=== PATIENT | female | born 1950 | race Caucasian/White ===

== ENCOUNTER → 2017-07-21 | Outpatient (CLI) | payer MEDICARE, OTHER ==
[2017-06-25 10:44] VITALS: BMI 35.5
[~2017-07-21] MED LIST: AMLO-96 PO; AMLO-99 PO; ASCO500C8 PO; ASPI-757 PO; CALC500T42 PO; CALC600T63 PO; CHOL200025 PO; DIPH0.5D12 IM; FLAX100042 PO; FLU45SYR17 IM; FLUC100T35 PO; FOL1 PO; GARL400T18 PO; GARL5000 PO; GLUC-198 PO; GREE1CAP5 PO; HYDR-2966 PO; INSU100I28 SQ; INSU100I30 SQ; IRBE1TAB24 PO; LISI-355 PO; LISI20TA29 PO; MET500 PO; MONT10TA PO; MULT1CAP41 PO; OXYC-865 PO; PNEI IM; PNEU0.5D3 IM; ROSU20TA23 PO; SELE200T23 PO; SULF-198 PO; VERA200C8 PO; ZOST19404 SQ; [UNRECOGNIZED DRUG - CODE] PO
== END ==
LOC: LAB 12:37
PROVIDERS: ATTEND Nurse Practitioner Family
DX: R30.0 Dysuria (principal); R35.0 Frequency of micturition; B96.20 Unspecified Escherichia coli [E. coli] as the cause of diseases classified elsewhere
CPT/HCPCS: 81001; 87088; 87186

== ENCOUNTER 2017-12-23 00:34 | Inpatient (IN) | payer MEDICARE, OTHER ==
[2017-11-25 08:01] LABS: PLATELET COUNT, AUTOMATED 215 K/uL (150-450)
[2017-12-22 14:23] LABS: INR 0.96
[~2017-12-23] VITALS: Ht 152.4 cm; Wt 83.9 kg
[2017-12-23] VITALS (11 sets, daily range): BP systolic 134–172; BP diastolic 63–82
[~2017-12-23 00:34] MED LIST changes: +CHOL10005 PO; +GLIM1TAB25 PO; +INSU100V24 SQ; +[UNRECOGNIZED DRUG - OTHER]
--- NOTE | 2017-12-23 04:23 | HISTORY AND PHYSICAL ---
DATE OF ADMISSION: December 23, 2017 IDENTIFICATION, CHIEF COMPLAINT Silvia is a 67-year-old woman with chief complaint of left knee pain. HISTORY OF PRESENT ILLNESS Patient has a longstanding history of knee arthritis, progressively painful and debilitating, refractory to conservative care. Surgery is indicated to relieve symptoms after failure of nonoperative measures. PAST MEDICAL HISTORY Notable for hypertension, controlled on medication, insulin-dependent diabetes. PAST SURGICAL HISTORY Notable for outpatient knee arthroscopy and hysterectomy. ALLERGIES NSAIDS cause nosebleeds. CURRENT MEDICATIONS 1. Hydrochlorothiazide 25 mg daily. 2. Lisinopril 20 mg daily. 3. Humalog 14-16 units three times a day, sliding scale. 4. Lantus 33 units nightly. 5. Montelukast 10 mg p.o. daily. 6. Rosuvastatin 20 mg p.o. daily. 7. Amlodipine 5 mg p.o. daily. FAMILY HISTORY Noncontributory. SOCIAL HISTORY Negative for tobacco and alcohol use. REVIEW OF SYSTEMS: Otherwise negative. PHYSICAL EXAMINATION GENERAL: This is a healthy female. HEENT: She is normocephalic, atraumatic. NECK: Supple. LUNGS: Clear. HEART: Regular. ABDOMEN: Soft. ORTHOPEDIC EXAM: The left knee is stiff at the end range of motion. Effusion is present. Gross stability is good. Extensor function is intact. RADIOGRAPHIC DATA Radiographs demonstrate end-stage knee arthritis. ASSESSMENT Left knee end-stage degenerative joint disease, progressively painful and debilitating, refractory to conservative care. PLAN Per patient request, we are going to proceed with total knee replacement. Nature of the procedure, risks, benefits, the anticipated rehab course were reviewed. Risks of the procedure include, but are not limited to, , major medical or anesthetic complication, infection, neurovascular injury, blood transfusion, stiffness, scarring, fracture, tendon rupture, instability, implant loosening, migration or failure, persistent or recurrent pain, need for additional surgery, other unforeseen. She understands and wishes to proceed. Signed permit was placed in the chart, no guarantees are given or implied. JESSICA
[2017-12-23] MEDS ORDERED: fentaNYL CITR 100 MCG/2 ML AMP ONE (09:22)
[2017-12-23] MEDS ORDERED: LIDOCAINE 2% IV 100 MG/5ML SYR ONE (09:23)
[2017-12-23] MEDS ORDERED: PROPOFOL EMUL(*) 10MG/ML 20 ML 20 ML ONE (09:24)
[2017-12-23] MEDS ORDERED: PROPOFOL EMUL(*) 10MG/ML 20 ML 60 ML ONE (10:17)
[2017-12-23] MEDS ORDERED: ceFAZolin(*) 1 GM VIAL 1 GM in NS(*) 0.9% 100 ML ADDVANT BAG 100 ML IVPB ONE (10:30)
[2017-12-23] MEDS ORDERED: MIDAZOLAM 2 MG/2 ML VIAL IVP PRN (10:30)
[2017-12-23] MEDS ORDERED: ceFAZolin(*) 2GM/D5W 50ML 50 ML IVPB ONE (10:30)
[2017-12-23] MEDS ORDERED: CELECOXIB 200 MG CAP PO ONE (10:30)
[2017-12-23] MEDS ORDERED: PREGABALIN 150 MG CAPSULE PO ONE (10:30)
[2017-12-23] MEDS ORDERED: FAMOTIDINE 20 MG TAB PO ONE (10:30)
[2017-12-23] MEDS ORDERED: NORMOSOL R SOLN(*) 1000 ML BAG 1,000 ML IV PRN ×2 (10:30→13:50)
[2017-12-23] MEDS ORDERED: LIDOCAINE/SOD BICARB 8.4% SYR ID ONE (10:30)
[2017-12-23] MEDS ORDERED: ACETAMINOPHEN 500 MG TAB PO ONE (10:30)
[2017-12-23] MEDS ORDERED: cloNIDine EPIDUR INJ 100MCG/ML 40 MCG, ROPIVACAINE 0.5% 20 ML VIAL 25 ML, EPINEPHrine H... INJ ONE (10:30)
[2017-12-23] MEDS ORDERED: TRANEXAMIC AC 1000 MG/10ML SDV 1,000 MG in DEXTROSE 5% 50 ML BAG 50 ML IV ONE (10:30)
[2017-12-23] MEDS ORDERED: DEXAMETHASONE SOD PHOS 10MG/ML ONE (11:28)
[2017-12-23] MEDS ORDERED: ONDANSETRON 4 MG/2 ML VIAL ONE (11:28)
[2017-12-23] MEDS ORDERED: BUPIVACAINE 0.25% MPF INJ ONE (11:30)
[2017-12-23] MEDS ORDERED: PROPOFOL EMUL(*) 10MG/ML 20 ML 40 ML ONE (12:13)
[2017-12-23] MEDS ORDERED: INSULIN HUM REG 100 UN/ML 3 ML VIAL SC ONE (13:25)
[2017-12-23] MEDS ORDERED: INSULIN HUM LISPRO 100 UN/ML 3 ML VIAL SUBQ ONE (13:25)
[2017-12-23] MEDS ORDERED: diphenhydrAMINE 25 MG CAP PO PRN (13:50)
[2017-12-23] MEDS ORDERED: PROMETHAZINE 25 MG/ML 1 ML AMP IVP PRN (13:50)
[2017-12-23] MEDS ORDERED: MAGNESIUM HYDROXIDE* 30ML UDCP PO PRN (13:50)
[2017-12-23] MEDS ORDERED: BISACODYL 10 MG SUPP PR PRN (13:50)
[2017-12-23] MEDS ORDERED: FLUSH 10 ML SYR IVP PRN (13:50)
[2017-12-23] MEDS ORDERED: diphenhydrAMINE 50 MG/ML VIAL IVP PRN (13:50)
[2017-12-23] MEDS ORDERED: ZOLPIDEM TARTRATE 5 MG TAB PO PRN (13:50)
[2017-12-23] MEDS ORDERED: DIAZEPAM 5 MG TAB PO PRN (13:50)
[2017-12-23] MEDS ORDERED: BENZOCAINE/MENTHOL 1 EACH LOZG PO PRN (13:50)
--- NOTE | 2017-12-23 14:31 | OPERATIVE REPORT 1 ---
EVENT DATE: December 23, 2017 SURGEON: Harsh Ervin MD ANESTHESIOLOGIST: Abraham Heath MD ANESTHESIA: General plus spinal. CITY DIRECTOR: Faheem Mukherjee PA-C PREOPERATIVE DIAGNOSIS Left knee degenerative joint disease. POSTOPERATIVE DIAGNOSIS Left knee degenerative joint disease. PROCEDURE PERFORMED Left total knee arthroplasty. ESTIMATED BLOOD LOSS Minimal. DRAINS None. SPECIMENS None. COMPLICATIONS None apparent. TOURNIQUET TIME 38 minutes IMPLANTS USED Sandra Triathlon knee system, 3 left PS femur, 3 standard tibial baseplate, 29 mm universal, cemented, all-polythene patellar button, 11 PS tibial tray liner. INDICATIONS Silvia is a 67-year-old woman with intractable pain related to end-stage knee arthritis. Surgery is indicated to relieve symptoms after failure of nonoperative measures. DESCRIPTION OF PROCEDURE Patient was taken to the operating room and placed supine on the operating table. General anesthesia was induced after a spinal block was placed by the anesthesiologist. Antibiotics and TXA were administered IV. Left lower extremity was prepped and draped in the usual sterile fashion for knee arthroplasty. Limb was exsanguinated with an Esmarch bandage. Tourniquet inflated to 250 mmHg. Midline longitudinal incision made, carried down through the skin and subcutaneous tissue to the extensor mechanism. Full-thickness flaps were developed far enough medially to allow medial parapatellar arthrotomy be performed. Patella was everted. Knee was brought into the flexed position. Fat pad, anterior horns of the menisci, and the cruciate ligaments were debrided. A subperiosteal medial released was started in a titrated fashion to balance the knee. A step drill was used to enter the distal femur. A 10-inch long alignment guide was used to engage the isthmus, cut set for 6 degrees of valgus relative to the anatomic axis. The 10 mm resection block was applied, pinned, and cuts made with an oscillating saw. AP sizing guide was applied to the distal femoral cut, positioned for 3 degrees of external rotation relative to the posterior condyles. Size 3 is optimal without risk of notching. The four-in-one cutting block is applied. Anterior, posterior, posterior chamfer, and anterior chamfer cuts are made respectively. PS block is applied and centered. Medial and lateral bone is removed through the box. Attention is turned to tibial preparation. The extramedullary guide is applied, positioned for varus, valgus, posterior slope, and rotation. This is set to resect 9 mm from the relatively intact lateral tibial plateau. It is dropped down another millimeter or two to ensure an adequate cut. Block is pinned. Extramedullary alignment check is made. Cuts made with an oscillating saw. After osteophyte removal, gaps are balanced and symmetric with no additional releases required. The trial 3 tibial baseplate provides optimum bony coverage without soft tissue overhang. This is inserted along with the trial liner and trial femur. Knee is brought to extension. Patella is taken from the starting thickness of 20 to a residual of 14 with a patellar clamp and oscillating saw. The 29 provides optimum bony coverage without soft tissue overhang. Lug holes are drilled. Patella tracks nicely with the no-touch technique. Final tibial preparation consists of assuring appropriate rotational and translational positioning of the component. The boss is reamed. Fin is punched. Surfaces are lavaged and dried. A mix of methacrylate is made, and the components cemented in a single stage. Once the cement is fully polymerized, tourniquet is deflated, and hemostasis assured. Wound is copiously lavaged. The 11 PS tibial tray liner fills up the gap ideally, allowing the knee to drop to full extension without hyperextension, providing optimal soft tissue tension and stability. The tray is lavaged and dried, and the actual liner is locked into the baseplate. Joint is reduced. Arthrotomy is closed in flexion with #2 Ethibond, subcutaneous tissue with 3-0 Vicryl, skin with surgical rodney. Xeroform and 4 x 4's applied as a dry, sterile dressing and compression wrap. The patient was awakened from anesthesia and taken to the recovery room in stable condition having tolerated the procedure well. Plan is for standard TKA rehab protocol. [facility]
[2017-12-23] MEDS ORDERED: SCOPOLAMINE 1.5 MG PATCH TD ONE (15:20)
--- NOTE | 2017-12-23 15:34 | Hospitalist Progress Note ---
Subjective Progress Notes Subjective Patient seen post-op. Reviewed PMHx (type 2 DM, HTN, hyperlipidemia) and medications (Lantus/Amaryl/Novolog, lisinopril HCTZ, amlodipine, Crestor). At present she reports some mild dizziness/nausea. No CP/SOB. Physical Exam Vital Signs Date Time Temp Pulse Resp B/P (MAP) Pulse Ox O2 Delivery O2 Flow Rate FiO2 12/23/17 14:45 93 16 94 12/23/17 09:12 98.6 172/82 (112) Room Air Intake and Output 12/24/17 06:59 Intake Total 1800 ml Output Total 50 ml Balance 1750 ml Intake IV Total 1800 ml Output Estimated Blood Loss 50 ml # Voids 1 General Appearance: Alert, Awake Neuro: No Gross deficits Cardiovascular: Regular Rate and Rhythm Respiratory: Clear to Auscultation GI: Soft and Non-Tender Assessment and Plan Problems: (1) Status post knee replacement Status: Acute Assessment & Plan: She has some mild post-op nausea. Apparently, she has had significant problems in the past after anesthesia. Will place scopolamine patch. Watch closely. She has no history of DVT/PE. She will be on aspirin for prophylaxis as per Dr. Ervin. (2) HTN (hypertension) Onset Date: 08/12/2014 Status: Chronic Assessment & Plan: Will monitor her BPs and resume her amlodipine, lisinopril, HCTZ as needed. (3) Type 2 diabetes mellitus Onset Date: 08/12/2014 Status: Chronic Assessment & Plan: Will place on ADA diet, resume her Lantus and Amaryl, monitor glucoses, and use SSI as needed. (4) Hyperlipidemia Onset Date: 08/12/2014 Status: Chronic Assessment & Plan: Continue Crestor. DAVID RIZO MD Dec 23, 2017 15:33
--- NOTE | 2017-12-23 15:40 | RADIOLOGY IMAGING REPORT ---
FACILITY: [facility] [place] PATIENT NAME: Silvia Beck : 1950 MR: [id number] V: [id number] EXAM DATE: ORDERING PHYSICIAN: NORM MITCHELL TECHNOLOGIST: Location: [facility] Patient: Silvia Beck : 1950 Visit/Account:[id number] Date of Sevice: 12/23/2017 EXAMINATION: Left knee 2 views HISTORY: Postop left TKA COMPARISON: None. FINDINGS: Surgical changes of left TKA with patellar resurfacing. The femoral and tibial components appear well seated and demonstrate normal alignment. Surrounding soft tissue swelling with anterior skin rodney. IMPRESSION: Surgical changes of left TKA. Unremarkable postoperative film. Report Dictated By: Bhanu Schroeder MD at 12/23/2017 3:35 PM Report E-Signed By: Bhanu Schroeder MD at 12/23/2017 3:37 PM WSN:[id number]
[2017-12-23] MEDS: INSULIN HUM LISPRO 100 UN/ML 3 ML VIAL SUBQ PRN ×2 (16:28→21:37)
[2017-12-23] MEDS: CELECOXIB 200 MG CAP PO SCH (17:02)
[2017-12-23] MEDS: APAP/HYDROCODONE 325/7.5 TAB PO PRN ×2 (17:03→21:51)
[2017-12-23] MEDS ORDERED: NS(*) 0.9% 500 ML BAG 500 ML ONE (19:31)
[2017-12-23] MEDS: ceFAZolin(*) 1 GM VIAL 1 GM in NS(*) 0.9% 100 ML ADDVANT BAG 100 ML IVPB SCH (19:31)
[2017-12-23] MEDS ORDERED: NS(*) 0.9% 500 ML BAG 500 ML IV PRN (19:35)
[2017-12-23] MEDS ORDERED: INSULIN GLARGINE 100 U/ML 3 ML PEN SQ SCH (21:00)
[2017-12-23] MEDS: CALCIUM CARBONATE 600 MG TAB PO SCH (21:32)
[2017-12-24] MEDS: APAP/HYDROCODONE 325/7.5 TAB PO PRN ×5 (02:12→21:22)
[2017-12-24] MEDS: ceFAZolin(*) 1 GM VIAL 1 GM in NS(*) 0.9% 100 ML ADDVANT BAG 100 ML IVPB SCH ×2 (02:51→11:38)
[2017-12-24 03:27] VITALS: BP 131/74
[2017-12-24 06:53] VITALS: BP 142/71
[2017-12-24] MEDS: INSULIN HUM LISPRO 100 UN/ML 3 ML VIAL SUBQ PRN ×4 (07:39→21:23)
[2017-12-24] MEDS: CELECOXIB 200 MG CAP PO SCH ×2 (07:39→16:28)
--- NOTE | 2017-12-24 07:50 | Hospitalist Progress Note ---
Subjective Progress Notes Subjective She c/o some dizziness when first moving. No N/V. No CP/SOB. Physical Exam Vital Signs Date Time Temp Pulse Resp B/P (MAP) Pulse Ox O2 Delivery O2 Flow Rate FiO2 12/24/17 03:27 98.3 77 16 131/74 (93) 94 Nasal Cannula 2.0 General Appearance: Alert, Awake Cardiovascular: Regular Rate and Rhythm Respiratory: Clear to Auscultation Item Value Date Time Whole Blood Glucose 257 mg/DL H 12/23/17 2136 Whole Blood Glucose 225 mg/DL H 12/23/17 1613 Whole Blood Glucose 214 mg/DL H 12/23/17 1308 Whole Blood Glucose 241 mg/DL H 12/23/17 0954 Assessment and Plan Problems: (1) Status post knee replacement Status: Acute Assessment & Plan: She has had significant problems in the past after anesthesia (nausea/dizziness). She has a scopolamine patch. Watch symptoms closely. She has no history of DVT/PE. She is on aspirin for prophylaxis as per Dr. Ervin. (2) HTN (hypertension) Onset Date: 08/12/2014 Status: Chronic Assessment & Plan: Will continue to monitor her BPs and resume her amlodipine, lisinopril, HCTZ as needed. (3) Type 2 diabetes mellitus Onset Date: 08/12/2014 Status: Chronic Assessment & Plan: She is on ADA diet, Lantus and Amaryl. Will monitor glucoses and use SSI as needed. (4) Hyperlipidemia Onset Date: 08/12/2014 Status: Chronic Assessment & Plan: Continue Crestor. Exam Sepsis Risk: No Definite Risk DAVID RIZO MD Dec 24, 2017 07:49
[2017-12-24] MEDS: CALCIUM CARBONATE 600 MG TAB PO SCH ×2 (09:14→21:21)
[2017-12-24] MEDS: HYDROCHLOROTHIAZIDE 25 MG TAB PO SCH (09:14)
[2017-12-24] MEDS: LISINOPRIL 20 MG TAB PO SCH (09:14)
[2017-12-24] MEDS: MONTELUKAST SODIUM 10 MG TAB PO SCH (09:14)
[2017-12-24] MEDS: ASPIRIN 325 MG TAB PO SCH (09:14)
[2017-12-24] MEDS: GLIMEPIRIDE 2 MG TAB PO SCH (09:15)
[2017-12-24] MEDS: amLODIPine BESYL(*) 5 MG TAB PO SCH (09:15)
[2017-12-24] MEDS: ROSUVASTATIN CALCIUM 10 MG TAB PO SCH (09:15)
[2017-12-24 11:17] VITALS: BP 139/65
[2017-12-24 13:08] VITALS: Ht 152.4 cm; Wt 83.9 kg
[2017-12-24 15:26] VITALS: BP 123/60
[2017-12-24] MEDS: ACETAMINOPHEN 325 MG TAB PO PRN (15:34)
[2017-12-24 19:39] VITALS: BP 125/63
[2017-12-24] MEDS: INSULIN GLARGINE 100 U/ML 3 ML PEN SQ SCH (21:22)
[2017-12-24 23:22] VITALS: BP 138/76
[2017-12-25] MEDS: APAP/HYDROCODONE 325/7.5 TAB PO PRN (02:52)
[2017-12-25 07:19] VITALS: BP 140/61
[2017-12-25] MEDS: HYDROCHLOROTHIAZIDE 25 MG TAB PO SCH (07:26)
[2017-12-25] MEDS: LISINOPRIL 20 MG TAB PO SCH (07:26)
[2017-12-25] MEDS: amLODIPine BESYL(*) 5 MG TAB PO SCH (07:26)
[2017-12-25] MEDS: CELECOXIB 200 MG CAP PO SCH ×2 (07:27→17:15)
[2017-12-25] MEDS: MONTELUKAST SODIUM 10 MG TAB PO SCH (07:27)
[2017-12-25] MEDS: CALCIUM CARBONATE 600 MG TAB PO SCH ×2 (07:27→20:39)
[2017-12-25] MEDS: ACETAMINOPHEN 325 MG TAB PO PRN ×3 (07:27→20:40)
[2017-12-25] MEDS: ASPIRIN 325 MG TAB PO SCH (07:27)
[2017-12-25] MEDS: ROSUVASTATIN CALCIUM 10 MG TAB PO SCH (07:27)
[2017-12-25] MEDS: GLIMEPIRIDE 2 MG TAB PO SCH (07:28)
[2017-12-25] MEDS ORDERED: ACETAMINOPHEN 500 MG TAB PO PRN (07:55)
[2017-12-25] MEDS: INSULIN HUM LISPRO 100 UN/ML 3 ML VIAL SUBQ PRN ×4 (08:21→20:40)
[2017-12-25 10:57] VITALS: BP 156/72
--- NOTE | 2017-12-25 13:59 | Hospitalist Progress Note ---
Subjective Progress Notes Subjective No new complaints. Physical Exam Vital Signs Date Time Temp Pulse Resp B/P (MAP) Pulse Ox O2 Delivery O2 Flow Rate FiO2 12/25/17 10:57 99.0 78 16 156/72 (100) 80 Room Air 12/24/17 23:22 1.0 Intake and Output 12/26/17 07:00 Intake Total 1320 ml Balance 1320 ml Intake Oral 1320 ml # Voids 3 General Appearance: Alert, Awake, No Acute Distress Neuro: No Gross deficits Cardiovascular: Regular Rate and Rhythm Respiratory: Clear to Auscultation GI: Soft and Non-Tender Extremities: Warm, Perfused Integumentary: Other (Surgical wound bandaged.) Psych: Appropriate Mood & Affect Assessment and Plan Problems: (1) Status post knee replacement Status: Acute Assessment & Plan: She has had significant problems in the past after anesthesia (nausea/dizziness). She has a scopolamine patch. Watch symptoms closely. She has no history of DVT/PE. She is on aspirin for prophylaxis as per Dr. Ervin. (2) HTN (hypertension) Onset Date: 08/12/2014 Status: Chronic Assessment & Plan: Will continue to monitor her BPs and resume her amlodipine, lisinopril, HCTZ as needed. (3) Type 2 diabetes mellitus Onset Date: 08/12/2014 Status: Chronic Assessment & Plan: She is on ADA diet, Lantus and Amaryl. Will monitor glucoses and use SSI as needed. (4) Hyperlipidemia Onset Date: 08/12/2014 Status: Chronic Assessment & Plan: Continue Crestor. Time Spent on Plan of Care: < 30 min Exam Sepsis Risk: No Definite Risk PATSY RIZO MD Dec 25, 2017 13:58
[2017-12-25 14:50] VITALS: BP 154/74
[2017-12-25 19:02] VITALS: BP 135/78
[2017-12-25] MEDS: INSULIN GLARGINE 100 U/ML 3 ML PEN SQ SCH (20:40)
[2017-12-25 22:41] VITALS: BP 150/76
[2017-12-26 02:14] VITALS: BP 166/72
[2017-12-26] MEDS: ACETAMINOPHEN 325 MG TAB PO PRN (06:31)
[2017-12-26 07:57] VITALS: BP 150/73
[2017-12-26] MEDS: GLIMEPIRIDE 2 MG TAB PO SCH (08:51)
[2017-12-26] MEDS: ASPIRIN 325 MG TAB PO SCH (08:51)
[2017-12-26] MEDS: LISINOPRIL 20 MG TAB PO SCH (08:51)
[2017-12-26] MEDS: ROSUVASTATIN CALCIUM 10 MG TAB PO SCH (08:52)
[2017-12-26] MEDS: MONTELUKAST SODIUM 10 MG TAB PO SCH (08:52)
[2017-12-26] MEDS: amLODIPine BESYL(*) 5 MG TAB PO SCH (08:52)
[2017-12-26] MEDS: CALCIUM CARBONATE 600 MG TAB PO SCH (08:52)
[2017-12-26] MEDS: CELECOXIB 200 MG CAP PO SCH (08:52)
[2017-12-26] MEDS: HYDROCHLOROTHIAZIDE 25 MG TAB PO SCH (08:52)
[2017-12-26] MEDS ORDERED: HYDR-4309 PO (09:36)
[2017-12-26] MEDS ORDERED: MELO-149 PO (09:37)
== END 2017-12-26 10:00 | disposition home or self-care (01) | DRG 470 ==
LOC: OR 00:34 → MED 14:45
PROVIDERS: ADMIT Orthopaedic Surgery; ATTEND Orthopaedic Surgery
PROC: 0SRD0J9 Replacement of Left Knee Joint with Synthetic Substitute, Cemented, Open Approach (ICD-10-PCS; principal; 2017-12-23 11:09)
DX: M17.12 Unilateral primary osteoarthritis, left knee (principal); E11.9 Type 2 diabetes mellitus without complications; E78.5 Hyperlipidemia, unspecified; I10 Essential (primary) hypertension; E66.9 Obesity, unspecified; Z79.4 Long term (current) use of insulin; Z90.710 Acquired absence of both cervix and uterus; Z68.36 Body mass index [BMI] 36.0-36.9, adult; Z96.651 Presence of right artificial knee joint; Z87.891 Personal history of nicotine dependence
CPT/HCPCS: 36415; 36416; 81001; 82040; 82247; 82310; 82374; 82435; 82565; 82947; 82948; 83036; 84075; 84132; 84155; 84295; 84450; 84460; 84520; 85025; 85610; 86850; 86900; 86901; 97161; C1713; C1776; J0171; J0690; J0735; J1100; J1815; J1885; J2001; J2250; J2405; J2704; J2795; J3010; J7040; J7050; J7060; S0020

== ENCOUNTER 2017-12-27 05:48 | Emergency (ER) | payer MEDICARE, OTHER ==
[2017-12-24 13:08] VITALS: Wt 83.9 kg
--- NOTE | 2017-12-27 05:54 | ER Report ---
History and Physical Time Seen By MD: 05:54 Hx. of Stated Complaint: PT PRESENTS VIA EMS WITH NOSEBLEED FOR 45 MINUTES. (SETH ORTEGA MD) Time Seen By MD: 07:41 (SANTIAGO MEZA DO) HPI/ROS CHIEF COMPLAINT: nosebleed HISTORY OF PRESENT ILLNESS: This is a 67 year old female. She has had a nose bleed for about 45 minutes. She had a knee replacement surgery on the left knee last Friday. She has been on aspirin to prevent blood clots. She has had nose bleeds in the past with aspirin and NSAID use. She has had some Aleve recently as well. She is on oxygen after her surgery, and suspects that this is drying out her nose. Left nasal passage started bleeding, then had blood in throat and right nasal passage as well. (SETH ORTEGA MD) Allergies: Coded Allergies: metformin (Verified Adverse Reaction, Intermediate, DIARRHEA, 12/27/17) hydrocodone (Verified Adverse Reaction, Mild, NAUSEA, 12/27/17) ibuprofen (Verified Adverse Reaction, Mild, NOSE BLEEDS, 12/27/17) naproxen (Verified Adverse Reaction, Mild, NOSE BLEEDS, 12/27/17) oxycodone (Verified Adverse Reaction, Mild, DIZZINESS, 12/27/17) phenylephrine (Verified Adverse Reaction, Unknown, NOSE BLEEDS, 12/27/17) Home Meds Active Scripts Amlodipine Besylate (AMLODIPINE BESYLATE) 10 Mg Tablet, 1 TAB PO DAILY, #90 TAB 1 Refill Prov:AZKI CLEMONS APRNP-C 12/19/17 Rosuvastatin Calcium (CRESTOR) 20 Mg Tablet, 1 TAB PO QDAY, #90 TAB 1 Refill Prov:ZAKI CLEMONS APRN POLICYHOLDER INFORMATION CLERK-C 12/18/17 Montelukast Sodium (SINGULAIR) 10 Mg Tablet, 1 TAB PO QDAY, #90 TAB 2 Refills Prov:ZAKI CLEMONS APRN POLICYHOLDER INFORMATION CLERK-C 12/04/17 Glimepiride (GLIMEPIRIDE) 1 Mg Tablet, 1 TAB PO QDAY, #90 TAB 0 Refills Prov:ZAKI CLEMONS APRN POLICYHOLDER INFORMATION CLERK-C 11/28/17 Aspirin (ASPIRIN) 325 Mg Tablet, 325 MG PO QDAY, #30 TAB Prov:RICARDO FRENCH DO 06/26/17 Reported Medications Meloxicam (MOBIC) 7.5 Mg Tablet, 7.5 MG PO BID, #60 12/26/17 Hydrocodone Bit/Acetaminophen (NORCO 5-325 TABLET) 1 Each Tablet, 1 EACH PO Q4H Y for PAIN, #60 TAB 12/26/17 Insulin Glargine 100 Un/Ml Pen (LANTUS SOLOSTAR PEN) 100 Unit/1 Ml Insuln.pen, 33 UNIT SQ HS, ML 12/17/17 Insulin Lispro 100 Un/Ml Vial (HUMALOG 100 U/ML VIAL) 100 Unit/1 Ml Vial, 14-16 UNIT SQ TID, VIAL 12/17/17 Glucosa Golden 2KCL/Chondroitin Golden (GLUCOSAMINE & CHONDROITIN CAP) 1 Each Capsule, 2 EACH PO, CAPSULE 12/17/17 Lisinopril/Hydrochlorothiazide (LISINOPRIL-HCTZ 20-25 MG TAB) 1 Each Tablet, 1 EACH PO DAILY, TAB 11/28/17 Garlic (GARLIQUE) 5,000 Mcg Tablet, 5000 MCG PO DAILY 06/10/17 Cholecalciferol (Vitamin D3) (VITAMIN D3) 2,000 Unit Capsule, 1 CAP PO DAILY, CAPSULE 08/12/14 Calcium Carbonate (CALCIUM) 600 Mg Tablet, 1 TAB PO BID 08/12/14 Discontinued Reported Medications Oxycodone Hcl/Acetaminophen (PERCOCET 5-325 MG TABLET) 1 Each Tablet, 1-2 EACH PO Q4-6H Y for PAIN, #100 TAB 06/27/17 Reviewed Nurses Notes: Yes (SETH ORTEGA MD) Hx Smoking: Yes (1-2 YEARS <1PPD) Smoking Status: Former Smoker Hx Alcohol Use: No (SETH ORTEGA MD) Constitutional Vital Sign - Last 24 Hours 12/27/17 12/27/17 12/27/17 12/27/17 05:51 05:52 06:03 06:08 Temp 97.9 Pulse 96 90 ??? Resp 18 B/P (MAP) 148/78 148/78 (101) Pulse Ox 95 94 O2 Delivery Room Air 12/27/17 12/27/17 12/27/17 12/27/17 06:38 06:53 07:08 07:20 Pulse ? B/P (MAP) 138/64 (88) 12/27/17 12/27/17 07:23 07:30 Pulse 88 B/P (MAP) 117/71 (86) Pulse Ox 91 (SANTIAGO MEZA DO) Physical Exam General Appearance: Alert, having some distress and anxiety about the bleeding. Eyes: Pupils equal and round no pallor or injection. ENT: Mucous membranes are moist. Oral mucosa is normal in appearance. Posterior oropharynx has clotted blood and oozing from above. Brisk bleeding, looks to be mid to posterior on the left side. No active bleeding notes on the right. Skin: Warm and dry, no rashes. DIFFERENTIAL DIAGNOSIS: After history and physical exam differential diagnosis was considered for epistaxis, likely from combination of aspirin use, NSAID use and oxygen drying the mucosa. Blood pressure is not elevated. (SETH ORTEGA MD) Medical Decision Making ED Course/Re-evaluation ED Course Initially started with Neosynephrine nasal spray bilateral nasal passages after having her expel clots with blowing her nose. Brisk bleeding after blowing her nose. Also applied 0.5cc atomized lidocaine 1% with epinephrine in the left nasal passage and reapplied the clamp to her nose. Waited about 10 minutes with gentle gargling of ice water. Despite this treatment, bleeding continued to come from both nasal passages and down her throat. Next, used 500mg of TXA soaked into some cotton and applied as packing in the left nasal passage, followed by clamping. Still bleeding despite this being in place for about 10 minutes. Removed the cotton and then atomized 250mg of the remaining TXA in the left nasal passage and then used a Rapid Rhino soaked with the remaining 250mg of TXA and used this in the left nasal passage and inflated to 4cc of air. She then repeated gentle gargles of the ice water with steady decrease of expectorated blood. Small oozing from the right nasal passage, and no bleeding from the left. (SETH ORTEGA MD) ED Course Patient is a 67-year-old female here status post epistaxis having multiple modalities attempted for cessation of bleeding with a Rhino Rocket in place and inflated. I took over for Dr. Ortega at approximately 7:00. I reevaluated the patient and there is no active bleeding at this time. I discussed precautions with the patient and advised the patient to return in 24-72 hours for removal and return promptly if she develops recurrent bleeding, worsening pain, swelling , fevers or difficulty breathing. Decision to Disposition Date: Dec 27, 2017 Decision to Disposition Time: 07:41 (SANTIAGO MEZA DO) Depart Departure Latest Vital Signs Vital Signs Date Time Temp Pulse Resp B/P (MAP) Pulse Ox O2 Delivery O2 Flow Rate FiO2 12/27/17 07:30 117/71 (86) 12/27/17 07:23 88 91 12/27/17 05:51 97.9 18 Room Air (SANTIAGO MEZA DO) Impression: Primary Impression: Epistaxis Condition: Improved Disposition: HOME OR SELF-CARE Referrals: ZAKI CLEMONS APRN POLICYHOLDER INFORMATION CLERK-C (PCP) Patient Instructions: Nosebleed (ED) Additional Instructions: Please leave the rapid Rhino in place for 24-72 hours. Please return to have the Rhino Rocket removed. If you develop bleeding in the meantime, difficulty breathing, increased pain or swelling please return. SETH ORTEGA MD Dec 27, 2017 05:54 SANTIAGO MEZA DO Dec 27, 2017 07:45
[2017-12-27] MEDS ORDERED: ENT KIT ONE (05:55)
[2017-12-27] MEDS ORDERED: TRANEXAMIC AC 1000 MG/10ML SDV ONE (06:20)
[2017-12-27 07:42] VITALS: BP 135/69
[2017-12-27] MEDS ORDERED: PHENYLEPHRINE 0.5% 15 ML BTL ONE (08:08)
== END 2017-12-27 08:12 | disposition home or self-care (01) ==
LOC: ER 05:54
DX: R04.0 Epistaxis (principal); Z79.82 Long term (current) use of aspirin
CPT/HCPCS: 30903; 99282; A9270

== ENCOUNTER → 2017-12-27 | Outpatient (CLI) | payer MEDICARE, OTHER ==
[2017-12-24 13:08] VITALS: BMI 36.1
[~2017-12-27] MED LIST changes: +HYDR-4309 PO; +MELO-149 PO
== END ==
LOC: AMB 05:11
PROVIDERS: ATTEND Nurse Practitioner
DX: R04.0 Epistaxis (principal)
CPT/HCPCS: A0425; A0427

== ENCOUNTER 2017-12-29 09:54 | Emergency (ER) | payer MEDICARE, OTHER ==
[2017-12-24 13:08] VITALS: Wt 83.9 kg
--- NOTE | 2017-12-29 10:03 | ER Report ---
History and Physical Time Seen By : 09:59 HPI/ROS CHIEF COMPLAINT: Patient here for rapid Rhino removal HISTORY OF PRESENT ILLNESS: Patient is a 67-year-old female who was seen on December 27 for epistaxis and had a rapid Rhino placed. She returns for the emergency department today for reevaluation and possible removal of nasal tampon. Patient denies any bleeding since nasal tampon was placed. REVIEW OF SYSTEMS: ENT: No active bleeding Respiratory: No cough, no dyspnea. Cardiovascular: No chest pain, no palpitations. Gastrointestinal: No vomiting, no abdominal pain. Musculoskeletal: No back pain. Allergies: Coded Allergies: metformin (Verified Adverse Reaction, Intermediate, DIARRHEA, 12/29/17) hydrocodone (Verified Adverse Reaction, Mild, NAUSEA, 12/29/17) ibuprofen (Verified Adverse Reaction, Mild, NOSE BLEEDS, 12/29/17) naproxen (Verified Adverse Reaction, Mild, NOSE BLEEDS, 12/29/17) oxycodone (Verified Adverse Reaction, Mild, DIZZINESS, 12/29/17) phenylephrine (Verified Adverse Reaction, Unknown, NOSE BLEEDS, 12/29/17) Home Meds Active Scripts Amlodipine Besylate (AMLODIPINE BESYLATE) 10 Mg Tablet, 1 TAB PO DAILY, #90 TAB 1 Refill Prov:ZAKI CLEMONS APRN-C 12/19/17 Rosuvastatin Calcium (CRESTOR) 20 Mg Tablet, 1 TAB PO QDAY, #90 TAB 1 Refill Prov:ZAKI CLEMONS APRN-C 12/18/17 Montelukast Sodium (SINGULAIR) 10 Mg Tablet, 1 TAB PO QDAY, #90 TAB 2 Refills Prov:ZAKI CLEMONS APRN-C 12/04/17 Glimepiride (GLIMEPIRIDE) 1 Mg Tablet, 1 TAB PO QDAY, #90 TAB 0 Refills Prov:ZAKI CLEMONS APRN-C 11/28/17 Aspirin (ASPIRIN) 325 Mg Tablet, 325 MG PO QDAY, #30 TAB Prov:RICARDO FRENCH DO 06/26/17 Reported Medications Meloxicam (MOBIC) 7.5 Mg Tablet, 7.5 MG PO BID, #60 12/26/17 Hydrocodone Bit/Acetaminophen (NORCO 5-325 TABLET) 1 Each Tablet, 1 EACH PO Q4H Y for PAIN, #60 TAB 12/26/17 Insulin Glargine 100 Un/Ml Pen (LANTUS SOLOSTAR PEN) 100 Unit/1 Ml Insuln.pen, 33 UNIT SQ HS, ML 12/17/17 Insulin Lispro 100 Un/Ml Vial (HUMALOG 100 U/ML VIAL) 100 Unit/1 Ml Vial, 14-16 UNIT SQ TID, VIAL 12/17/17 Glucosa Golden 2KCL/Chondroitin Golden (GLUCOSAMINE & CHONDROITIN CAP) 1 Each Capsule, 2 EACH PO, CAPSULE 12/17/17 Lisinopril/Hydrochlorothiazide (LISINOPRIL-HCTZ 20-25 MG TAB) 1 Each Tablet, 1 EACH PO DAILY, TAB 11/28/17 Garlic (GARLIQUE) 5,000 Mcg Tablet, 5000 MCG PO DAILY 06/10/17 Cholecalciferol (Vitamin D3) (VITAMIN D3) 2,000 Unit Capsule, 1 CAP PO DAILY, CAPSULE 08/12/14 Calcium Carbonate (CALCIUM) 600 Mg Tablet, 1 TAB PO BID 08/12/14 Discontinued Reported Medications Oxycodone Hcl/Acetaminophen (PERCOCET 5-325 MG TABLET) 1 Each Tablet, 1-2 EACH PO Q4-6H Y for PAIN, #100 TAB 06/27/17 Past Medical/Surgical History Past medical history for hypertension, history of epistaxis, history of left knee replacement. Hx Smoking: Yes (1-2 YEARS <1PPD) Smoking Status: Former Smoker Hx Substance Use Disorder: No Hx Alcohol Use: No Constitutional Vital Sign - Last 24 Hours 12/29/17 09:59 Temp 98.1 Pulse 99 Resp 16 B/P (MAP) 146/83 Pulse Ox 94 O2 Delivery Room Air Physical Exam General Appearance: Alert, no distress. Eyes: Pupils equal and round no pallor or injection. ENT, Mouth: Ears: Tympanic membranes are normal. Nose: No bleeding. Rhino Rocket the left naris no active bleeding Mouth: Mucous membranes are moist. Throat: No erythema or exudates there is no tonsillar hypertrophy and uvula is midline. Musculoskeletal: Neck is supple non tender, no adenopathy. Skin: Warm and dry, no rashes. Medical Decision Making ED Course/Re-evaluation ED Course 12/29/2017 10:03:02 am plan at this time will be to remove the air from the Rhino Rocket we will observe the patient for 10-15 minutes if no bleeding will gently remove nasal packing and observe for another 10-15 minutes. Re-evaluation 12/29/2017 10:27:32 am patient had no active bleeding after balloon was deflated. Rhino Rocket was removed. We will observe the patient for another 10- 15 minutes Decision to Disposition Date: Dec 29, 2017 Decision to Disposition Time: 10:50 Depart Departure Latest Vital Signs Vital Signs Date Time Temp Pulse Resp B/P (MAP) Pulse Ox O2 Delivery O2 Flow Rate FiO2 12/29/17 09:59 98.1 99 16 146/83 94 Room Air Impression: Primary Impression: Epistaxis Condition: Improved Disposition: HOME OR SELF-CARE Referrals: ZAKI CLEMONS APRN RESIN REMOVER-C (PCP) Patient Instructions: Noselaura (GEN) NILESH BALTAZAR MD Dec 29, 2017 10:03
[2017-12-29 10:54] VITALS: BP 136/74
== END 2017-12-29 10:58 | disposition home or self-care (01) ==
LOC: ER 09:59
DX: R04.0 Epistaxis (principal)
CPT/HCPCS: 99281

== ENCOUNTER → 2018-07-12 | Outpatient (CLI) | payer MEDICARE, OTHER ==
[2017-12-24 13:08] VITALS: BMI 36.1
[~2018-07-12] MED LIST changes: +AMLO-111 PO; +AMLO-113 PO; -AMLO-96 PO; -AMLO-99 PO; -HYDR-4309 PO; +HYDR-653 PO
[2018-07-12 09:02] LABS: PLATELET COUNT, AUTOMATED 234 K/uL (150-450)
[2018-07-12 09:24] LABS: LDL CHOLESTEROL 67 mg/dl
== END ==
LOC: LAB 08:20
PROVIDERS: ATTEND Nurse Practitioner Family
DX: E78.5 Hyperlipidemia, unspecified (principal); E11.9 Type 2 diabetes mellitus without complications; I10 Essential (primary) hypertension
CPT/HCPCS: 36415; 82040; 82247; 82310; 82374; 82435; 82465; 82565; 82947; 83036; 83718; 84075; 84132; 84155; 84295; 84443; 84450; 84460; 84478; 84520; 85025

== ENCOUNTER → 2018-07-21 | Outpatient (CLI) | payer MEDICARE, OTHER ==
[2017-12-24 13:08] VITALS: BMI 36.1
[~2018-07-21] MED LIST changes: -AMLO-111 PO; -AMLO-113 PO; +AMLO-125 PO; +AMLO-127 PO; +FLU180SY11 IM; +VARI50KI IM
== END ==
LOC: LAB 10:39
PROVIDERS: ATTEND Nurse Practitioner Family
DX: Z11.59 Encounter for screening for other viral diseases (principal)
CPT/HCPCS: 36415; G0472; 86803

== ENCOUNTER → 2018-08-12 | Outpatient (CLI) | payer MEDICARE, OTHER ==
[2017-12-24 13:08] VITALS: BMI 36.1
--- NOTE | 2018-08-12 10:20 | RADIOLOGY IMAGING REPORT ---
FACILITY: [facility] [place] PATIENT NAME: Silvia Beck : 1950 MR: [id number] V: [id number] EXAM DATE: ORDERING PHYSICIAN: ZAKI CLEMONS TECHNOLOGIST: Location: [facility] [place] Patient: Silvia Beck : 1950 Visit/Account:[id number] Date of Sevice: 08/12/2018 DEXA Scan Clinical history: Asymptomatic postmenopausal state, rheumatoid arthritis. Comparison: DEXA scan from August 10, 2015. LUMBAR SPINE: The bone mineral density (BMD) measured from L1-L4 correlates with a Z-score of -0.5 and a T-score of -1.5 which is osteopenia as defined by the World Health Organization. The corresponding risk of fra cture in the lumbar spine is 3 times increased compared with a young adult reference population. Thi s value has increased by 2.6 % since the prior study. More than 5% change is considered significant. HIP: Bone mineral density (BMD) measured in the LEFT total hip region correlates with a Z-score 0.3 and a T-score of by 0.6 which is normal as defined by the World Health Organization. The corresponding risk of fracture in the hip is 1-2 t imes increased compared to a young adult reference population. This value has decrease by 6.1 % since the prior study. More than 5% change is considered significant. T score left femoral neck is -1.3 Bone mineral density (BMD) measured in the Femoral Neck region measures 0.857 g/cm?. IMPRESSION: 1. Lumbar spine: Osteopenia. There has been 2.6% increase in the bone mineral density since the pre vious exam. 2. Left Total Hip: Normal. There has been 6.1% decrease in the bone mineral density since the previ ous exam. 3. Femoral Neck: Bone Mineral Density is 0.857 g/cm? The next DEXA scan of this patient should include the following sites: L1-L4 and the left hip. FRAX? WHO Fracture Risk Assessment Tool link: <http://www.shef.ac.uk/FRAX/tool.jsp?locationValue=9> PLEASE NOTE: 1) The World Health Organization defines low BMD as follows: T-score Normal > -1 Osteopenia < -1 and > -2.5 Osteoporosis < -2.5 without fractures Established osteoporosis < -2.5 with fractures 2) In general, you may wish to consider: Diagnosis Treatment Follow-up DEXA Normal BMD Prevention 2-3 years Osteopenia Prevention/therapy 1-2 years Osteoporosis Therapy Yearly 3) Fracture risk estimated from the T-score is more accurate for vertebral fractures (often spontane ous) than for hip fractures. Report Dictated By: Sherry Sherman MD at 08/12/2018 10:13 AM Report E-Signed By: Sherry Sherman MD at 08/12/2018 10:16 AM WSN:[email or web address]
--- NOTE | 2018-08-12 14:00 | RADIOLOGY IMAGING REPORT ---
FACILITY: [facility] - [place] PATIENT NAME: TYLOR OLIVA : [id number] MR: [id number] V: [id number] EXAM DATE: ORDERING PHYSICIAN: ZAKI CLEMONS TECHNOLOGIST: Nydia Ponce PROCEDURE:BILATERAL DIGITAL SCREENING MAMMOGRAM WITH CAD ASSISTED INTERPRETATION & 3D TOMOSYNTHESIS COMPARISON:Prior mammograms 08/10/15. INDICATIONS:SCREENING FINDINGS: The breasts are heterogeneously dense which can obscure small masses. The parenchymal pattern has remained stable allowing for difference in mammographic technique & patient positioning. DIAGNOSTIC CATEGORY 1--NEGATIVE. RECOMMENDATIONS: ROUTINE MAMMOGRAM AND CLINICAL EVALUATION. IMPRESSION: BIRADS 1: Negative. No significant abnormality is seen. Dictated by: Sherry Sherman M.D. on 08/12/2018 at 11:02 Transcribed by: TERRENCE on 08/12/2018 at 11:09 Approved by: Sherry Sherman M.D. on 08/12/2018 at 13:59 [facility]
== END ==
LOC: MAMO 00:39
PROVIDERS: ATTEND Nurse Practitioner Family
DX: Z13.820 Encounter for screening for osteoporosis (principal); Z12.31 Encounter for screening mammogram for malignant neoplasm of breast; M85.88 Other specified disorders of bone density and structure, other site; Z78.0 Asymptomatic menopausal state
CPT/HCPCS: 77063; 77067; 77080

== ENCOUNTER 2018-09-03 09:19 | Outpatient (RCR) | payer MEDICARE, OTHER ==
[2017-12-24 13:08] VITALS: Ht 149.9 cm; Wt 85.7 kg
[~2018-09-03] VITALS: Ht 149.9 cm; Wt 85.7 kg
[~2018-09-03 09:19] MED LIST changes: +DICL100G39 TOP; -ROSU20TA23 PO; +ROSU20TA24 PO
--- NOTE | 2018-09-03 14:36 | Medical Nutrition Therapy ---
Nutrition Anthropometrics Height (Inches): 59 Weight (Pounds): 189 BMI: 38.2 Rodrick Nutrition Score: Rodrick Nutrition Risk Score: Dietary Referral Nutrition Risk Factors: Nutrition Risk Comment: Nutrition/Food History Breakfast: belvita bar (23 CHO) coffee Lunch: Maurisio sand and 1/2 med frys or salad or sand or lunch bars ( ~ 45gm) Dinner: 2c froz veg, meat or foz dinner (`30gm) Nutritional Education Learning Readiness: Interested Teaching Methods: Discussion, Handout Response to Teaching: Verbalize understanding Teaching Recipient: Patient Nutrition Counseling: pt interested in inulin pump. Expained how insulin pumps work, reviewed difference between basal and bolis insulin, reviewed CHO counting vs preset bolis. Pt is interested in pursuing insulin pump if she qualifies with Medicare. Pt interested in CGM. Provided handout and reviewed freestyle liz. discussed how freestlye liz could be used with insulin pump. Pt was able to demonstrate CHO counting. Pt states trys to keep CHO within 30-45gm/meal. Nutrition Monitoring & Eval RD Patient Assessment Time: [address] Assessment Type: RD Education Nutritional Comment: provided 45 minues diabetes education focusing on carb counting, insulin pumps and CGM Copies To Copies to: ZAKI CLEMONS APRN ; SHON MARTÍNEZ Sep 03, 2018 11:06
== END 2018-09-23 13:00 | disposition home or self-care (01) ==
LOC: DIET 09:19
PROVIDERS: ATTEND Nurse Practitioner Family
DX: E11.9 Type 2 diabetes mellitus without complications (principal); Z79.4 Long term (current) use of insulin
CPT/HCPCS: G0108

== ENCOUNTER → 2018-09-07 | Outpatient (CLI) | payer MEDICARE, OTHER ==
[2017-12-24 13:08] VITALS: BMI 36.1
[~2018-09-07] MED LIST changes: +ROSU20TA23 PO; -ROSU20TA24 PO
== END ==
LOC: LAB 08:38
PROVIDERS: ATTEND Nurse Practitioner Family
DX: E11.9 Type 2 diabetes mellitus without complications (principal)
CPT/HCPCS: 36415; 82947; 84681

== ENCOUNTER 2018-10-15 09:23 | Outpatient (RCR) | payer MEDICARE, OTHER ==
[2017-12-24 13:08] VITALS: Wt 85.3 kg
[~2018-10-15 09:23] MED LIST changes: -DIPH0.5D12 IM; +DIPH0.5S2 IM; -ROSU20TA23 PO; +ROSU20TA24 PO
--- NOTE | 2018-10-15 14:31 | Medical Nutrition Therapy ---
Nutrition Anthropometrics Weight (Pounds): 190 Rodrick Nutrition Score: Rodrick Nutrition Risk Score: Dietary Referral Nutrition Risk Factors: Nutrition Risk Comment: Nutritional Education Nutrition Education Topic: Diabetic Nutrition Learning Readiness: Interested Teaching Methods: Discussion, Handout Response to Teaching: Verbalize understanding Teaching Recipient: Patient Nutrition Counseling: Pt f/u to work on her behavioural goal of better BG control and start working on wt loss. Pt did not meet medicare eligiblity for insulin pump d/t BG too high for accurate c-peptide test. Pt started free stFlightCastere liz CGM. Pt noted BG readings were different that CGM readings. Discussed difference between BG and intersitial fluid readings. Reviewed significance of CGM readings and action to take when pt is high/low or trending up or down. Pt currently is not taking correction dose when high. Stated that usually 1 U of humolog with decrease BG ~ 30-50 points. Encouraged pt to talk with PCP to get a sliding scale correction does she should use. Pt states she feels like she is having a low even when the reading is WNR. Discussed how body gets used to higher BG and will feel low until she gets better control. Enouraged pt to try 15gm CHO with protein when she feels like she is low. Pt cont high readings during nightime. Encouraged pt to try 15gm CHO + protein before bed to help avoid thomas effect. Pt states would like to try keto diet. Reviewed CHO counting and Keto vs high protein low CHO diet. Provided copy of moderated fat with emphasis on unsaturated fat with moderated protein and low CHO. Pt will try for 2 weeks and f/u 10/29 @ 9:00. Nutrition Monitoring & Eval RD Patient Assessment Time: [address] Assessment Type: RD Education Nutritional Comment: Provided 60 minutes f/u diabetes education working on behavioural goals of better BG control Copies To Copies to: ZAKI CLEMONS APRN MACADAM RAKER-C ; SHON MARTÍNEZ Oct 15, 2018 14:31
--- NOTE | 2018-10-29 10:13 | Medical Nutrition Therapy ---
Nutrition Anthropometrics Weight (Pounds): 188 Rodrick Nutrition Score: Rodrick Nutrition Risk Score: Dietary Referral Nutrition Risk Factors: Nutrition Risk Comment: Nutrition/Food History Breakfast: breakfast cereal or breakfast bar Lunch: TV dinner or salad chef salad Dinner: TV dinner + salad Nutritional Education Nutrition Education Topic: Diabetic Nutrition Learning Readiness: Interested Teaching Methods: Discussion Response to Teaching: Verbalize understanding Teaching Recipient: Patient Nutrition Counseling: Pt provided with low CHO, mod protein and fat diet having wanted to try the keto diet. Pt states he wasn't able to stick with that diet so has been doing more TV dinnr trying to use a more nutrasystem approach. Pt cont to use Freestly liz. Reviewed screen and pt cont to have elevated BG post breakfast and evening. Recommend pt try a breakfast sandwich as cold cereal is a high GI food. Discussed correction dose when high and recommend pt talk with PCP for a sliding scale when B is high. Pt will return in 2 weeks for weigh-in only. 11/12 @ 9:00 Nutrition Monitoring & Eval RD Patient Assessment Time: [address] Assessment Type: RD Education Nutritional Comment: Provided 30 minutes f/u diabetes education working on wt loss Copies To Copies to: ZAKI CLEMONS APRN [employer]IST-C ; SHON MARTÍNEZ Oct 29, 2018 10:13
[2018-11-11] MEDS ORDERED: INSU100I30 SQ (08:58)
== END 2018-11-18 12:24 | disposition home or self-care (01) ==
LOC: DIET 09:23
PROVIDERS: ATTEND Nurse Practitioner Family
DX: E11.9 Type 2 diabetes mellitus without complications (principal); Z71.3 Dietary counseling and surveillance
CPT/HCPCS: G0108 ×3

== ENCOUNTER → 2018-11-10 | Outpatient (CLI) | payer MEDICARE, OTHER ==
[2017-12-24 13:08] VITALS: BMI 36.1
== END ==
LOC: LAB 08:48
PROVIDERS: ATTEND Nurse Practitioner Family
DX: E11.9 Type 2 diabetes mellitus without complications (principal)
CPT/HCPCS: 36415; 82947; 84681

== ENCOUNTER 2018-11-12 08:55 | Outpatient (RCR) | payer MEDICARE, OTHER ==
[2017-12-24 13:08] VITALS: Wt 82.6 kg
--- NOTE | 2018-11-17 15:31 | Medical Nutrition Therapy ---
Nutrition Anthropometrics Weight (Pounds): 182 Rodrick Nutrition Score: Rodrick Nutrition Risk Score: Dietary Referral Nutrition Risk Factors: Nutrition Risk Comment: Nutrition Monitoring & Eval Nutritional Comment: Late entry of 11/12. Pt came in for weighin- only. < 15 minutes. Wt 182#, down 6# from 10/30. Pt decnined further weigh-in in facility. Pt states will cont wt loss efforts and weigh at home. Copies To Copies to: ZAKI CLEMONS APRNP-C ; SHON MARTÍNEZ November 17, 2018 15:31
== END 2018-11-18 11:45 | disposition home or self-care (01) ==
LOC: DIET 08:55
PROVIDERS: ATTEND Nurse Practitioner Family
DX: E11.9 Type 2 diabetes mellitus without complications (principal)

== ENCOUNTER → 2018-12-04 | Outpatient (CLI) | payer MEDICARE, OTHER ==
[2017-12-24 13:08] VITALS: BMI 36.1
== END ==
LOC: LAB 10:52
PROVIDERS: ATTEND Nurse Practitioner Family
DX: E11.9 Type 2 diabetes mellitus without complications (principal); I10 Essential (primary) hypertension
CPT/HCPCS: 36415; 82040; 82247; 82310; 82374; 82435; 82565; 82947; 83036; 84075; 84132; 84155; 84295; 84450; 84460; 84520

== ENCOUNTER 2019-02-04 08:22 | Outpatient (RCR) | payer MEDICARE, OTHER ==
[2017-12-24 13:08] VITALS: BMI 36.1
--- NOTE | 2019-02-04 10:37 | Medical Nutrition Therapy ---
Nutritional Education Nutrition Education Topic: Diabetic Nutrition Learning Readiness: Eager Teaching Methods: Discussion, Handout, Demonstration Response to Teaching: Verbalize understanding, Reinforcement needed Teaching Recipient: Patient Nutrition Counseling: Provided pre- insertion of insulin pump education. Provided education on Bolus Wizard, preset bolus, CHO counting, Hypoglycemia rule of 15, hyperglycemia management, sick day management, BG testing, connection to glucometer The following setting were made: Basel 1.3 Max Basel 2 Max Bolus 15 Carb ratio 8 Preset bolus 9 Insulin Sensitivity factor 30 Pt set up to receive education on reservoir filling, infusion set insertion, and review of all setting on 02/09. Nutrition Monitoring & Eval RD Patient Assessment Time: [address] Assessment Type: RD Education Nutritional Comment: Provided 90 minutes pre insertion of insulin pump education. Copies To Copies to: ZAKI CLEMONS APRNP-C ; SHON MARTÍNEZ Feb 04, 2019 10:37
== END 2019-02-26 ==
LOC: DIET 08:22
PROVIDERS: ATTEND Nurse Practitioner Family
DX: Z46.81 Encounter for fitting and adjustment of insulin pump (principal)

== ENCOUNTER 2019-02-09 08:48 | Outpatient (RCR) | payer MEDICARE, OTHER ==
[2017-12-24 13:08] VITALS: BMI 36.1
--- NOTE | 2019-02-09 10:38 | Medical Nutrition Therapy ---
Nutritional Education Learning Readiness: Eager, Interested Teaching Methods: Discussion, Handout, Demonstration Response to Teaching: Verbalize understanding Teaching Recipient: Patient Nutrition Counseling: Provided insulin pump education and insertion. Provided education on Bolus Wizard, preset bolus, temp basal, infusion set insertion, site selection, CHO counting, Hypoglycemia rule of 15, hyperglycemia management , sick day management, BG testing The following setting were made: Basel 1.2 Max Basel 2 Bolus Max Bolus 15 Carb ratio 8 Preset bolus 9 Insulin Sensitivity factor 30 Will call pt within 24 hrs. to check BG levels and address any questions, concerns, or problems. Pt was able to successfully demonstrate knowledge of insulin pump. Pt will come back 02/11 for assistance with changing insertion set. Nutrition Monitoring & Eval RD Patient Assessment Time: 60 minutes Nutritional Comment: Provided 60 minutes insulin pump instruction with insert of infusion set. Copies To Copies to: ZAKI CLEMONS APRNP-C ; SHON MARTÍNEZ Feb 09, 2019 10:38
--- NOTE | 2019-02-11 16:35 | Medical Nutrition Therapy ---
Nutritional Education Nutrition Education Topic: Diabetic Nutrition Learning Readiness: Interested Teaching Methods: Demonstration Response to Teaching: Verbalize understanding Teaching Recipient: Patient Nutrition Counseling: Reviewed past 48 hrs of pump. Pt cont to range in 200's with 300's after lbreakfast. Basel was changed to: 1.5 11:30AM- 6:00AM 1.6 6:00am- 11:30AM Carb ratio was changed to 5 for breakfast meal Nutrition Monitoring & Eval RD Patient Assessment Time: 30 minutes Nutritional Comment: Provided 30 minutes insulin pump adjustment Copies To Copies to: ZAKI CLEMONS APRNP-C ; SHON MARTÍNEZ Feb 11, 2019 16:35
== END 2019-02-26 ==
LOC: DIET 08:48
PROVIDERS: ATTEND Nurse Practitioner Family
DX: Z02.9 Encounter for administrative examinations, unspecified (principal)